=== PATIENT | female | born 1945 | race Caucasian/White ===

== ENCOUNTER 2020-10-26 13:30 | Emergency (ER) | payer MEDICARE, OTHER ==
[2020-10-26 17:16] LABS: BLOOD UREA NITROGEN,BUN 14 mg/dL (7.0-18.0); CARBON DIOXIDE,CO2 26.4 mmol/L (21.0-32.0); CHLORIDE,CL 103 mmol/L (98-107); GLUCOSE RANDOM 97 mg/dL (74-106); LIPASE 154 U/L (73-393); POTASSIUM,K 4.2 mmol/L (3.5-5.1); SODIUM,NA 140 mmol/L (136-145)
--- NOTE | 2020-10-26 17:17 | US ---
HISTORY: Right upper quadrant abdominal pain. TECHNIQUE: Limited abdominal ultrasound. COMPARISON: No prior. FINDINGS: Liver size within normal limits. No focal liver lesion appreciated. There is no intrahepatic or extrahepatic biliary ductal dilatation. Extrahepatic bile duct measures 2 mm which is normal. Gallstones are present. The gallbladder wall thickness is within normal limits measuring 2-3 mm. Per the cytotechnologist supervisor, the patient was not tender over the gallbladder during scanning. Small amount of localized fluid adjacent to the gallbladder and liver is noted. Right kidney is not well seen. IMPRESSION: 1. Gallstones. There is a small amount of localized fluid adjacent to the gallbladder and liver. No gallbladder wall thickening or sonographic Jesus sign, however. 2. No biliary ductal dilatation. Dictated by Arden Solares MD @ 10/26/2020 5:16:07 PM (Electronically Signed)
--- NOTE | 2020-10-26 17:32 | EDM.PDOC ---
ED HPI GENERAL MEDICAL PROBLEM - General Chief Complaint: General Stated Complaint: GALLBLADDER REFERRAL Time Seen by Provider: 10/26/20 16:25 - History of Present Illness INITIAL COMMENTS - FREE TEXT/NARRATIVE: CHIEF COMPLAINT(S): Sent in from [facility] HISTORY OF PRESENT ILLNESS: This is a 75-year-old woman who presents to the emergency department with a chief complaint of sent in from [facility]. The patient states that she was evaluated in [facility] as she was experiencing some right upper quadrant pain. She states that at that time she was admitted overnight and has been able to tolerate p.o. She states that she was sent here because of concern for possible gallbladder issues. She states that she does have a history of anorexia but states that anytime she eats any fatty food especially chili her right upper quadrant pain seems to worsen. She describes it as sharp and intermittent. She states that at this time she is currently experiencing no pain at all. She denies any fevers, chills, chest pain, shortness of breath, nausea or vomiting. REVIEW OF SYSTEMS: Constitutional: Denies fever, chills. Eyes: Denies eye pain Ears, Nose, Mouth, & Throat: Denies earache Cardiovascular: Denies chest pain Respiratory: Denies shortness of breath Gastrointestinal: Positive for abdominal pain. Denies Nausea, vomiting, diarrhea, hematochezia. Genitourinary: Denies hematuria Skin:Denies a rash MSK: Denies joint pain Neurological: Denies blurred vision Psychiatric: Denies depression PAST MEDICAL HISTORY: As per history of present illness and as reviewed below otherwise noncontributory. SURGICAL HISTORY: As per history of present illness and as reviewed below otherwise noncontributory. SOCIAL HISTORY: As per history of present illness and as reviewed below otherwise noncontributory. FAMILY HISTORY: As per history of present illness and as reviewed below otherwise noncontributory. EXAMINATION OF ORGAN SYSTEMS/BODY AREAS: Constitutional: Blood pressure is 121/73, heart rate 88, respiratory rate 18 with an oxygen saturation of 98% on room air. Temperature 36.8 General: Well-appearing woman who is in no acute distress Psychiatric: Appropriate mood and affect. Eyes: No scleral icterus or conjunctival erythema ENMT: Moist mucous membranes. No pharyngeal erythema Cardiovascular: Regular, rate, and rhythm. No gallops, murmurs, or rubs. Bilateral upper extremity pulses symmetric and intact. No peripheral edema. No JVD. Respiratory: Lungs clear to auscultation bilaterally. No wheezes, rales, or rhonchi. Gastrointestinal: Soft, non-tender, non-distended. Normoactive bowel sounds negative Jesus's and McBurney's Genitourinary: No suprapubic tenderness Musculoskeletal: Normal range of motion. Skin: No lesions or abrasions. Neurological: Alert, GCS 15 MEDICAL DECISION MAKING AND COURSE IN THE ED WITH INTERPRETATION/REVIEW OF DIAGNOSTIC STUDIES: This is a 69-year-old woman with a past medical history of transaminitis at outside hospital concerning for possible cholecystitis. The patient's vitals are completely normal at this time and she denies any pain. At this time we will obtain laboratory notes including CBC, CMP and lipase. Will obtain a right upper quadrant ultrasound. I do not believe any further imaging or labs are indicated. Laboratory: CBC is unremarkable. CMP reveals elevated creatinine of 1.2, transaminitis with an AST of 152, ALT 167 and alkaline phosphatase of 133. The radiological images were viewed by myself along with reading the report from the radiologist. Abdominal ultrasound reveals gallstones. There is a small amount of localized fluid adjacent to the gallbladder and liver. No gallbladder wall thickening or sonographic Jesus sign. No evidence of ductal dilation. After imaging I did discuss the results with the patient. I discussed that I would like to speak to general surgery. They were amenable to this plan. I spoke with Dr. Moser who at this time given that she is afebrile, asymptomatic that she could follow-up outpatient for possible elective removal of gallbladder given the gallstones. The patient was amenable to this plan and had no further questions. They were given strict return precautions DISPOSITION: The patient was discharged home in stable condition. The patient will follow up with Dr. Moser within 1 week CONDITION: Fair PROCEDURES: None FINAL IMPRESSION(S)/DIAGNOSES: 1. Acute symptomatic cholelithiasis Markus Bui M.D. Past Medical History Cardiovascular History: Reports: Hypertension Gastrointestinal History: Reports: Cholelithiasis Social & Family History - Family History Family Medical History: No Pertinent Family History - Tobacco Use Tobacco Use Status *Q: Never Tobacco User - Caffeine Use Caffeine Use: Reports: None - Recreational Drug Use Recreational Drug Use: No ED ROS GENERAL - Review of Systems Review Of Systems: See Below ED EXAM, GENERAL - Physical Exam Exam: See Below Course - Vital Signs Last Recorded V/S: Last Vital Signs Temp 36.8 C 10/26/20 17:46 Pulse 82 10/26/20 17:46 Resp 18 10/26/20 17:46 BP 122/81 10/26/20 17:46 Pulse Ox 98 10/26/20 17:46 - Orders/Labs/Meds Labs: Laboratory Tests 10/26/20 10/26/20 Range/Units 16:44 16:44 WBC 5.68 (4.0-11.0) K/uL RBC 3.80 L (4.30-5.90) M/uL Hgb 12.1 (12.0-16.0) g/dL Hct 36.0 (36.0-46.0) % MCV 94.7 (80.0-98.0) fL MCH 31.8 (27.0-32.0) pg MCHC 33.6 (31.0-37.0) g/dL RDW Std Deviation 48.3 (28.0-62.0) fl RDW Coeff of Julienne 14 (11.0-15.0) % Plt Count 224 (150-400) K/uL MPV 9.40 (7.40-12.00) fL Neut % (Auto) 64.8 (48.0-80.0) % Lymph % (Auto) 24.8 (16.0-40.0) % [place]in % (Auto) 8.3 (0.0-15.0) % Eos % (Auto) 1.9 (0.0-7.0) % Baso % (Auto) 0.2 (0.0-1.5) % Neut # (Auto) 3.7 (1.4-5.7) K/uL Lymph # (Auto) 1.4 (0.6-2.4) K/uL Mag[place]in # (Auto) 0.5 (0.0-0.8) K/uL Eos # (Auto) 0.1 (0.0-0.7) K/uL Baso # (Auto) 0.0 (0.0-0.1) K/uL Nucleated RBC % 0.0 /100WBC Nucleated RBCs # 0 K/uL Sodium 140 (136-145) mmol/L Potassium 4.2 (3.5-5.1) mmol/L Chloride 103 (98-107) mmol/L Carbon Dioxide 26.4 (21.0-32.0) mmol/L BUN 14 (7.0-18.0) mg/dL Creatinine 1.2 H (0.6-1.0) mg/dL Est Cr Clr Drug Dosing TNP Estimated GFR (MDRD) 43.6 ml/min Glucose 97 (74-106) mg/dL Calcium 10.1 (8.5-10.1) mg/dL Total Bilirubin 0.7 (0.2-1.0) mg/dL AST 152 H (15-37) IU/L ALT 167 H (14-63) IU/L Alkaline Phosphatase 133 H (46-116) U/L Total Protein 7.2 (6.4-8.2) g/dL Albumin 4.2 (3.4-5.0) g/dL Globulin 3.0 (2.6-4.0) g/dL Albumin/Globulin Ratio 1.4 (0.9-1.6) Lipase 154 (73-393) U/L Departure - Departure Time of Disposition: 17:31 Disposition: Home, Self-Care 01 Condition: Fair Clinical Impression: Symptomatic cholelithiasis - Discharge Information *PRESCRIPTION DRUG MONITORING PROGRAM REVIEWED*: No *COPY OF PRESCRIPTION DRUG MONITORING REPORT IN PATIENT SHANE: No Instructions: Cholelithiasis, [id number], Gallbladder Eating Plan Referrals: PCP,None [Primary Care Provider] - Forms: ED Department Discharge Additional Instructions: You were evaluated today on an emergent basis. At this time your gallbladder did show gallstones but it did not appear to be infected. As discussed you had some inflammation in the liver which appears about the same as yesterday. This is likely because of your gallstones. If you have any worsening abdominal pain, vomiting, or fever I like you to return to the emergency department here in [place]. As discussed I would like you to follow-up with Dr. Moser within 1 to 2 weeks and I would like you to decrease fat in your diet. [facility] - General Surgery Professional Building [address] [place] [address], [address] [place] [address] The patient is informed of any results of their evaluation and diagnostic workup and all questions are answered. They are given discharge instructions and return precautions. The patient is stable for discharge. The patient states they understand and agree with the plan and that they will return if their symptoms get worse or if they have any new concerns. The following information is given to patients seen in the emergency department who are being discharged to home. This information is to outline your options for follow-up care. We provide all patients seen in our emergency department with a follow-up referral. The need for follow-up, as well as the timing and circumstances, are variable de pending upon the specifics of your emergency department visit. If you don't have a primary care physician on staff, we will provide you with a referral. We always advise you to contact your personal physician following an emergency department visit to inform them of the circumstance of the visit and for follow-up with them and/or the need for any referrals to a consulting specialist. The emergency department will also refer you to a specialist when appropriate. This referral assures that you have the opportunity for follow-up care with a specialist. All of these measure are taken in an effort to provide you with optimal care, which includes your follow-up. Under all circumstances we always encourage you to contact your private physician who remains a resource for coordinating your care. When calling for follow-up care, please make the office aware that this follow-up is from your recent emergency room visit. If for any reason you are refused follow-up, please contact the [facility] Emergency Department at and asked to speak to the emergency department charge nurse. Sepsis Event Note (ED) - Evaluation Sepsis Screening Result: No Definite Risk
== END 2020-10-26 17:47 | disposition home or self-care (01) ==
LOC: MW.ED 13:30
DX: K80.20 Calculus of gallbladder without cholecystitis without obstruction (principal); I10 Essential (primary) hypertension
CPT/HCPCS: 36415; 76705; 76705-26; 80053; 83690; 85025; 99284-25

== ENCOUNTER 2020-11-08 07:16 | Day surgery (SDC) | payer MEDICARE, OTHER ==
[2020-11-08] MEDS ORDERED: cefOXitin 2 GM in Premix Bag 1 BAG IV ONE ×4 (08:00)
[2020-11-08] MEDS ORDERED: Lactated Ringers 1,000 ML IV SCH ×2 (08:00→12:15)
[2020-11-08] MEDS ORDERED: Morphine 2 MG/ML SYRINGE IVPUSH PRN ×2 (09:19→12:09)
[2020-11-08] MEDS ORDERED: Naloxone 0.4 MG/ML SDV IVPUSH PRN (09:19)
[2020-11-08] MEDS ORDERED: Albuterol 0.083% 2.5 MG/3 ML Neb Soln NEB PRN (09:19)
[2020-11-08] MEDS ORDERED: fentaNYL 100 MCG/2 ML SDV IVPUSH PRN (09:19)
[2020-11-08] MEDS ORDERED: Metoclopramide 10 MG/2 ML SDV IVPUSH PRN (09:19)
[2020-11-08] MEDS ORDERED: HYDROmorphone 1 MG/ML Syringe IVPUSH PRN (09:19)
[2020-11-08] MEDS ORDERED: Ondansetron 4 MG/2 ML SDV IVPUSH PRN (09:19)
--- NOTE | 2020-11-08 09:19 | PCM.PREANE ---
Preanesthetic Assessment - Procedure Proposed Procedure: Lap Janny - Anesthesia/Transfusion/Family Hx Anesthesia History: Prior Anesthesia Without Reaction Transfusion History: No Prior Transfusion(s) - Review of Systems General: No Symptoms Pulmonary: No Symptoms Cardiovascular: No Symptoms (HTN, H/O CABG and Carotid angioplasty. CAD, HLD untreated) Gastrointestinal: No Symptoms Neurological: No Symptoms Other: Reports: None (h/o kidney dysfunction when taking crestor) - Physical Assessment NPO Status Date: 11/07/20 NPO Status Time: 17:00 Height: 5 ft 3 in Weight: 45.813 kg ASA Class: 3 Mental Status: Alert & Oriented x3 Airway Class: Mallampati = 3 Dentition: Reports: Dentures (full upper) Thyro-Mental Finger Breadths: 3 Mouth Opening Finger Breadths: 3 ROM/Head Extension: Full Lungs: Clear to Auscultation, Normal Respiratory Effort Cardiovascular: Regular Rate, Regular Rhythm - Lab Values: Laboratory Last Values SARS-CoV-2 RNA (DANIEL) NEGATIVE (NEGATIVE) 11/08/20 07:31 - Allergies Allergies/Adverse Reactions: Allergies Allergy/AdvReac Type Severity Reaction Status Date / Time acetaminophen Allergy Cannot Verified 11/04/20 14:00 [From Tylenol-Codeine] Remember codeine Allergy Cannot Verified 11/04/20 14:00 [From Tylenol-Codeine] Remember Penicillins Allergy Cannot Verified 11/04/20 14:00 Remember rosuvastatin [From Crestor] Allergy Cannot Verified 11/05/20 14:49 Remember Orulkkh-Qvf-Ych Reductase Allergy "effected Verified 11/04/20 14:00 Inhibitor kidneys" ticanidine Allergy Cannot Uncoded 11/05/20 14:49 Remember - Acknowledgements Anesthesia Type Planned: General Anesthesia Pt an Appropriate Candidate for the Planned Anesthesia: Yes Alternatives and Risks of Anesthesia Discussed w Pt/Guardian: Yes Pt/Guardian Understands and Agrees with Anesthesia Plan: Yes PreAnesthesia Questionnaire HEENT History: Reports: Other (See Below) Other HEENT History: reading glasses, upper denture Cardiovascular History: Reports: High Cholesterol, Hypertension Respiratory History: Reports: None Gastrointestinal History: Reports: Cholelithiasis, Other (See Below) Other Gastrointestinal History: occasional heartburn Genitourinary History: Reports: None Musculoskeletal History: Reports: None Neurological History: Reports: None Psychiatric History: Reports: Anxiety, Depression Endocrine/Metabolic History: Reports: None Hematologic History: Reports: None Immunologic History: Reports: None Oncologic (Cancer) History: Reports: None Dermatologic History: Reports: None - Past Surgical History Head Surgeries/Procedures: Reports: None HEENT Surgical History: Reports: Cataract Surgery Cardiovascular Surgical History: Reports: Coronary Artery Bypass Respiratory Surgical History: Reports: None GI Surgical History: Reports: None Female Surgical History: Reports: None Endocrine Surgical History: Reports: None Neurological Surgical History: Reports: C-Spine Other Neurological Surgeries/Procedures: hx neck surgery Musculoskeletal Surgical History: Reports: None Oncologic Surgical History: Reports: None Dermatological Surgical History: Reports: None - SUBSTANCE USE Tobacco Use Status *Q: Never Tobacco User - HOME MEDS Home Medications: Home Meds Acetaminophen/Diphenhydramine [Tylenol Pm Ex-Strength Caplet] 1 tab PO BEDTIME PRN 11/04/20 [History] Aspirin [Adult Aspirin Regimen] 81 mg PO DAILY 11/04/20 [History] Aspirin/Caffeine [Wolf Back-Body 500-32.5 mg] 1 tab PO ASDIRECTED PRN 11/04/20 [History] Calcium Carbonate [Tums] 1 tab.chew CHEW ASDIRECTED PRN 11/04/20 [History] Chlorthalidone 25 mg PO DAILY 11/04/20 [History] Cholecalciferol (Vitamin D3) [Vitamin D3] 1,000 units PO DAILY 11/04/20 [History] Doxylamine Succinate [Unisom Sleep Aid] 25 mg PO BEDTIME 11/04/20 [History] Ezetimibe [Zetia] 10 mg PO DAILY 11/04/20 [History] Ibuprofen/Diphenhydramine Cit [Advil Pm Caplet] 1 tab PO BEDTIME PRN 11/04/20 [History] LORazepam [Ativan] 1 mg PO BEDTIME 11/04/20 [History] amLODIPine Besylate [Amlodipine Besylate] 5 mg PO DAILY 11/04/20 [History] - CURRENT (IN HOUSE) MEDS Current Meds: Current Medications Lactated Ringer's (Ringers, Lactated) 1,000 mls @ 125 mls/hr IV ASDIRECTED JESSICA Discontinued Medications Cefoxitin Sodium 2 gm/ Premix 50 mls @ 100 mls/hr IV ONETIME ONE Stop: 11/08/20 08:29
[2020-11-08] MEDS ORDERED: fentaNYL 100 MCG/2 ML SDV ONE (09:20)
[2020-11-08] MEDS ORDERED: Sugammadex Sodium 200 MG/2 ML VIAL ONE (09:20)
[2020-11-08] MEDS ORDERED: Lidocaine 2% 5 ML SDV ONE (09:20)
[2020-11-08] MEDS ORDERED: Rocuronium Bromide 50 MG/5 ML Syringe ONE (09:20)
[2020-11-08] MEDS ORDERED: Propofol 200 MG/20 ML SDV ONE (09:20)
[2020-11-08] MEDS ORDERED: Ondansetron 4 MG/2 ML SDV ONE (09:20)
[2020-11-08] MEDS ORDERED: Dexamethasone 4 MG/ML 5 ML MDV ONE (09:20)
[2020-11-08] MEDS ORDERED: Bupivacaine 0.5% 10 ML SDV ONE ×2 (10:27→11:36)
[2020-11-08] MEDS ORDERED: ceFAZolin 1 GM Vial ONE (10:27)
[2020-11-08] MEDS ORDERED: traMADol 50 MG Tab PO PRN (12:04)
--- NOTE | 2020-11-08 12:10 | PCM.POSTAN ---
POST ANESTHESIA ASSESSMENT - MENTAL STATUS Mental Status: Somnolent - VITAL SIGNS Vital Signs: Last Vital Signs Temp 97.5 F 11/08/20 10:01 Pulse 82 11/08/20 10:01 Resp 16 11/08/20 10:01 BP 139/84 11/08/20 10:01 Pulse Ox 97 11/08/20 10:01 - RESPIRATORY Respiratory Status: Respiratory Rate WNL, Airway Patent, O2 Saturation Stable - CARDIOVASCULAR CV Status: Pulse Rate WNL, Blood Pressure Stable - GASTROINTESTINAL GI Status: No Symptoms - PAIN Free Text/Narrative:: Resting comfortably - POST OP HYDRATION Hydration Status: Adequate & Stable
--- NOTE | 2020-11-08 12:11 | PCM.OPNOTE ---
- General Post-Op/Procedure Note Date of Surgery/Procedure: 11/08/20 Operative Procedure(s): Laparoscopic cholecystectomy Pre Op Diagnosis: Symptomatic cholelithiasis Post-Op Diagnosis: Same Anesthesia Technique: General ET Tube (ASA III) Primary Surgeon: Tree Moser Computer Operator: Jan Foley Fluid Replacement, Intraop: 800 Output, Urine Amount: 150 EBL in mLs: 10 Condition: Good Free Text/Narrative:: DICTATION 930941 CPT CODE 53380
--- NOTE | 2020-11-08 12:34 | PCM48HPAN ---
Post Anesthesia Note - EVALUATION WITHIN 48HRS OF ANESTHETIC Vital Signs in Normal Range: Yes Patient Participated in Evaluation: Yes Respiratory Function Stable: Yes Airway Patent: Yes Cardiovascular Function Stable: Yes Hydration Status Stable: Yes Pain Control Satisfactory: Yes Nausea and Vomiting Control Satisfactory: Yes Mental Status Recovered: Yes Vital Signs: Last Vital Signs Temp 97.5 F 11/08/20 12:05 Pulse 64 11/08/20 12:20 Resp 15 11/08/20 12:20 BP 148/44 H 11/08/20 12:20 Pulse Ox 100 11/08/20 12:20 - COMMENTS/OBSERVATIONS Free Text/Narrative:: Pt doing well post-op. VSS. No apparent anesthetic complications. Dr. Desean Silver
[2020-11-08] MEDS ORDERED: Ketorolac 15 MG/ML SDV IVPUSH PRN (12:42)
[2020-11-08] MEDS ORDERED: Ketorolac 30 MG/ML SDV ONE (12:42)
[2020-11-08] MEDS ORDERED: Meperidine PF 25 MG/ML Syringe IVPUSH ONE (12:43)
[2020-11-08] MEDS ORDERED: Ketorolac 30 MG/ML SDV IVPUSH PRN (13:00)
--- NOTE | 2020-11-08 14:05 | PCM48HPAN ---
Post Anesthesia Note - EVALUATION WITHIN 48HRS OF ANESTHETIC Vital Signs in Normal Range: Yes Patient Participated in Evaluation: Yes Respiratory Function Stable: Yes Airway Patent: Yes Cardiovascular Function Stable: Yes Hydration Status Stable: Yes Pain Control Satisfactory: Yes Nausea and Vomiting Control Satisfactory: Yes Mental Status Recovered: Yes Vital Signs: Last Vital Signs Temp 36.4 C 11/08/20 12:05 Pulse 61 11/08/20 13:00 Resp 15 11/08/20 13:00 BP 127/51 L 11/08/20 13:00 Pulse Ox 99 11/08/20 13:00
--- NOTE | 2020-11-08 19:54 | OR ---
SURGEON: Tree Moser M.D. DATE OF PROCEDURE: 11/08/2020 OPERATION PERFORMED: Laparoscopic cholecystectomy. PRIMARY SURGEON: Tree Moser M.D. MARKER DELIVERY: Farmworker Bulbs: ALLYSON [employer] student. ANESTHESIA: General endotracheal. ASA CLASSIFICATION: III. PREOPERATIVE DIAGNOSIS: Symptomatic cholelithiasis. POSTOPERATIVE DIAGNOSIS: Symptomatic cholelithiasis. ESTIMATED BLOOD LOSS: 10 mL. INTRAOPERATIVE FLUID REPLACEMENT: 800 mL of crystalloid. INTRAOPERATIVE URINARY OUTPUT: 150 mL. DESCRIPTION OF PROCEDURE: The patient was taken to the operating room and placed on the operating table in the supine position. Time-out was called for appropriate identification of the patient and procedure. Thigh-high TEDs and sequential compression boots had been placed. Following satisfactory attainment of general endotracheal anesthesia, a Lemons catheter was placed in the patient's urinary bladder. The abdomen was then prepped with ChloraPrep solution and sterile drapes were applied. The skin approximately 2 to 3 inches below the umbilicus was infiltrated with 0.5% Marcaine solution. Skin incision was made and deepened into the subcutaneous tissue obtaining hemostasis with the use of electrocautery. The Veress needle was introduced into the peritoneal cavity. Carbon dioxide pneumoperitoneum was established with the release set at 13 cm of water. Once a satisfactory pneumoperitoneum was established, 5 mm camera and port were placed through the infraumbilical incision. The right upper quadrant was examined and there were no significant adhesions noted to the gallbladder. The patient was now positioned with her feet down and rolled to the left. Under camera vision, 12 mm subxiphoid, 5 mm midclavicular, and 5 mm anterior axillary ports were placed. Each incision was preemptively injected with o.5% Marcaine. The gallbladder was grasped and the cholecystohepatic triangle was dissected free identifying the cystic duct and obtaining good critical view that structure before hemoclipping it. Likewise, the cystic artery was identified and traced to its junction with the gallbladder before hemoclipping this and dividing it with a laparoscopic Metzenbaum scissors. The gallbladder was then removed from the bed of the gallbladder using electrocautery. Small amount of bile and 1 stone were spilled. The bile was aspirated and the stone was retrieved. Once the gallbladder was amputated, this was promptly placed in an EndoCatch bag and maintained in situ while the right upper quadrant was inspected and irrigated with sterile saline solution. All fluid was aspirated. The right hemidiaphragm was now irrigated with 200 mL of saline containing 20 mL of 0.5% Marcaine solution. That fluid was left in place. Under camera vision, the 12 mm subxiphoid port and EndoCatch bag were retrieved. Again under camera vision, the 5 mm midclavicular and anterior axillary ports were removed. Finally, the infraumbilical camera and port were removed. All wounds were inspected for hemostasis and no bleeding was noted. The subxiphoid and infraumbilical incisions were closed in 2 layers approximating the subcutaneous tissue with 3-0 Vicryl and the skin with subcuticular 4-0 Monocryl. The midclavicular incision was closed with subcuticular 4-0 Monocryl and the anterior axillary incision was closed with cutaneous 4-0 Monocryl. All incisions were Steri-Stripped and dressed with sterile Tegaderm pads. Sponge, needle, and instrument counts were all correct. The Lemons catheter was removed prior to emergence from anesthesia. Following emergence from anesthesia and extubation, the patient was taken to recovery room in stable condition. BRIDGETT / SALINA /[id number] HOMAR
== END 2020-11-08 14:23 | disposition home or self-care (01) ==
LOC: MW.SDS 07:16
PROVIDERS: ATTEND Surgery
DX: K80.10 Calculus of gallbladder with chronic cholecystitis without obstruction (principal); F41.9 Anxiety disorder, unspecified; I10 Essential (primary) hypertension; G47.30 Sleep apnea, unspecified; I25.10 Atherosclerotic heart disease of native coronary artery without angina pectoris; F32.9 Major depressive disorder, single episode, unspecified; E78.00 Pure hypercholesterolemia, unspecified; Z01.812 Encounter for preprocedural laboratory examination; Z20.822 Contact with and (suspected) exposure to COVID-19; Z79.899 Other long term (current) drug therapy; Z79.82 Long term (current) use of aspirin; Z88.0 Allergy status to penicillin; Z88.8 Allergy status to other drugs, medicaments and biological substances; Z98.890 Other specified postprocedural states; Z88.5 Allergy status to narcotic agent
CPT/HCPCS: 47562; 88304; J0694; J1100; J1885; J2175; J2405; J2704; J3010; J3490; J7030; J7120; U0002; 00790; 99100; J0690